=== PATIENT | female | born 1980 ===

== ENCOUNTER 2025-07-18 06:17 | Day surgery (SDC) | payer BC, SELFPAY ==
[2025-07-18] VITALS (8 sets, daily range): BP systolic 98–112; BP diastolic 46–60; BMI 20.5
[2025-07-18 07:31] LABS: HCG, Urine Qualitative Screen Negative
[2025-07-18] MEDS: CELEBREX 200 MG PO (07:34)
[2025-07-18] MEDS: TYLENOL 1000 MG PO (07:34)
[2025-07-18] MEDS: NORMOSOL-R/PLASMALYTE-A 1000 IV (07:35)
== END 2025-07-18 10:48 | disposition home or self-care (01) ==
LOC: SDS 06:17
PROVIDERS: ATTENDING PHYSICIAN Student in an Organized Health Care Education/Training Program
DX: M20.5X1 Other deformities of toe(s) (acquired), right foot (principal)
CPT/HCPCS: 28289; 81025